=== PATIENT | female | born 1970 | race Caucasian/White ===

== ENCOUNTER → 2016-06-16 | Outpatient (CLI) | payer BC ==
--- NOTE | 2016-06-17 08:40 | WWHP ---
DATE OF SERVICE: 06/16/2016 CHIEF COMPLAINT: The patient is here for her routine gynecologic exam and mammogram. HPI: This is a 45-year-old, G2, P1-0-1-1 with an LMP of 05/2014. The patient continues to use progestin only oral contraception. She denies any hot flashes. Her last period was about 2 years ago. PAST MEDICAL HISTORY: Unremarkable. MEDICATIONS: Tameka 0.35 mg daily. ALLERGIES: No known drug allergies. PAST SURGICAL HISTORY: section in 1998. 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 SOCIAL HISTORY: She smokes about 1/2 pack of cigarettes per day and has 0 to 2 alcoholic drinks per month. She denies drug use. 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 FAMILY HISTORY: Unchanged from the 2016 H&P. REVIEW OF SYSTEMS: Weight has been stable. She denies respiratory, cardiac, or GI problems. PHYSICAL EXAM: Blood pressure 106/71. Height 5 feet 4 inches. Weight 124 pounds. Temperature 98.2, pulse 80. This a well-developed, well-nourished white female who is alert and oriented x3, in no acute distress. HEENT is within normal limits. NECK: Supple without mass or thyromegaly. CHEST AND LUNGS: Clear to auscultation. HEART: Regular rate and rhythm. Breasts are without mass or discharge. Axillary exam is negative for adenopathy. BACK: Negative for CVA tenderness. ABDOMEN: Soft, nontender, without palpable masses. PELVIC EXAM: Normal external genitalia. Cervix and vagina appear normal. There is no evidence of prolapse. The uterus is slightly retroverted, nongravid size and nontender. There are no palpable adnexal masses or tenderness. Rectovaginal exam is negative for mass or tenderness and is negative for occult blood. EXTREMITIES: Nontender. IMPRESSION: 1. A 45-year-old gynecologically healthy female with normal gynecologic exam. 2. The patient is doing well on progestin only oral contraception. PLAN: 1. Pap smear was performed. 2. Self breast examination was discussed. 3. Mammogram will be done today. 4. We will continue progestin only contraception at this time. We will consider doing blood testing to determine if she is menopausal in the next 1 to 2 years. 5. Osteoporosis prevention was discussed. 6. I have recommended that she try to quit smoking and many reasons to do this were given to the patient. 7. She will return in one year.
--- NOTE | 2016-06-18 10:12 | MM ---
Reason for exam: screening (asymptomatic). Last mammogram was performed 2 years and 1 month ago. History: Taking hormonal contraceptives for 6 months beginning at age 41. Physical Findings: A clinical breast exam by your physician is recommended on an annual basis and results should be correlated with mammographic findings. MG Screening Mammo w CAD Bilateral CC and MLO view(s) were taken. Prior study comparison: May 29, 2014, bilateral MG screening mammo w CAD. June 06, 2012, CAD bilateral diagnostic mammogram. The breast tissue is heterogeneously dense. This may lower the sensitivity of mammography. Two areas of focal asymmetry within the right breast appear more defined but may represent summation shadow. Further evaluation is recommended. ASSESSMENT: Incomplete: need additional imaging evaluation, BI-RAD 0 RECOMMENDATION: Special view mammogram of the right breast. If lesion persists on supplemental views, image directed ultrasound is recommended. [facility] will attempt to contact patient to return for supplemental views and ultrasound if indicated.
== END | disposition home or self-care (01) ==
LOC: WWCWWP 16:15
PROVIDERS: ATTEND Obstetrics & Gynecology
DX: Z12.31 Encounter for screening mammogram for malignant neoplasm of breast (principal); R92.8 Other abnormal and inconclusive findings on diagnostic imaging of breast; F17.200 Nicotine dependence, unspecified, uncomplicated; Z79.3 Long term (current) use of hormonal contraceptives

== ENCOUNTER → 2016-08-20 | Outpatient (CLI) | payer BC ==
--- NOTE | 2016-08-20 13:42 | MM ---
Reason for exam: additional evaluation requested from abnormal screening. Last mammogram was performed 2 months ago. History: Taking hormonal contraceptives for 6 months beginning at age 41. Physical Findings: Nurse did not find any significant physical abnormalities on exam. MG Work Up Mamm w CAD RT CC, MLO, LM, and CCRM view(s) were taken of the right breast. Prior study comparison: June 16, 2016, bilateral MG screening mammo w CAD. May 29, 2014, bilateral MG screening mammo w CAD. The breast tissue is heterogeneously dense. This may lower the sensitivity of mammography. No discrete abnormality. 6 month follow up recommended. These results were verbally communicated with the patient and result sheet given to the patient on 08/20/16. ASSESSMENT: Probably benign, BI-RAD 3 RECOMMENDATION: Follow-up diagnostic mammogram of the right breast in 6 months.
== END ==
LOC: RADMAMWWP 12:51
PROVIDERS: ATTEND Obstetrics & Gynecology
DX: R92.8 Other abnormal and inconclusive findings on diagnostic imaging of breast (principal)

== ENCOUNTER → 2017-06-22 | Outpatient (CLI) | payer BC ==
--- NOTE | 2017-06-22 16:13 | WWHP ---
[facility] - HISTORY AND PHYSICAL DATE OF DICTATION: 06/22/2017 CHIEF COMPLAINT: The patient is here for her routine gynecologic exam and mammogram. HISTORY OF PRESENT ILLNESS: This is a 46-year-old G2, P1-0-1-1 with an LMP of 05/2014. The patient has been amenorrheic on progestin-only oral contraception. She is without gynecologic complaints. PAST MEDICAL HISTORY: Unremarkable. MEDICATIONS: Tameka 0.35 mg 1 daily. ALLERGIES: NO KNOWN DRUG ALLERGIES. PAST SURGICAL HISTORY: section, 1998. 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 SOCIAL HISTORY: She has decreased the amount of tobacco use to 6 cigarettes per day or less. She is trying to quit. She has 2-3 alcohol-containing drinks per week and denies drug use. 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 FAMILY HISTORY: Unchanged from the 2016 H&P. REVIEW OF SYSTEMS: She has gained 6 pounds over the last year. She denies respiratory, cardiac or GI problems. PHYSICAL EXAMINATION: Blood pressure 101/69, height 5 feet 4 inches, weight 130 pounds, BMI 22. Temperature 98.5, pulse 69. This is a well-developed, well-nourished white female who is alert and oriented x3, in no acute distress. HEENT: Within normal limits. NECK: Supple without mass or thyromegaly. CHEST AND LUNGS: Clear to auscultation. HEART: Regular rate and rhythm. Breasts are without mass or discharge. Axillary exam is negative for adenopathy. BACK: Negative for CVA tenderness. ABDOMEN: Soft, nontender, without palpable masses. PELVIC EXAMINATION: Normal external genitalia. Cervix and vagina appear normal. There is no significant atrophy and no evidence of prolapse. The uterus is mid position, nongravid size and nontender. There are no palpable adnexal masses or tenderness. Rectal exam is negative for mass or tenderness and is negative for occult blood. EXTREMITIES: Nontender. ADDITIONAL STUDIES: Her last mammogram on 06/16/2016 required a right breast workup. The right breast workup was considered benign, but a follow-up diagnostic mammogram was recommended in 6 months, which was not done. IMPRESSION: 1. Yroum-wexl-[id number]-old female doing well on progestin-only oral contraception. 2. Amenorrhea, on progestin-only oral contraception. 3. Normal gynecologic exam. 4. History of abnormal right mammogram with a benign workup one year ago. PLAN: 1. Pap smear was deferred, since she had a normal one last year. 2. Self breast examination was discussed. 3. Diagnostic mammogram will be done today because of her history of an abnormal mammogram last year. 4. Osteoporosis prevention was discussed. 5. Continue progestin-only control at this time. 6. She will return in one year. MMODL / IJN: [id number] /
--- NOTE | 2017-06-23 07:29 | MM ---
Reason for exam: screening (asymptomatic). Last mammogram was performed 10 months ago. History: Taking hormonal contraceptives for 6 months beginning at age 41. Physical Findings: Dr. Rodriguez did not find any significant physical abnormalities on exam. MG Diagnostic Mammo w CAD GEMMA Bilateral CC and MLO view(s) were taken. Prior study comparison: August 20, 2016, right breast MG work up mamm w CAD RT. June 16, 2016, bilateral MG screening mammo w CAD. The breast tissue is heterogeneously dense. This may lower the sensitivity of mammography. Asymmetric breast tissue in the right upper quadrant, stable 2013. There is no discrete abnormality. These results were verbally communicated with the patient and result sheet given to the patient on 06/22/17. ASSESSMENT: Benign, BI-RAD 2 RECOMMENDATION: Routine screening mammogram of both breasts in 1 year.
== END | disposition home or self-care (01) ==
LOC: WWCWWP 13:49
PROVIDERS: ATTEND Obstetrics & Gynecology
DX: R92.8 Other abnormal and inconclusive findings on diagnostic imaging of breast (principal)
CPT/HCPCS: 77066

== ENCOUNTER → 2018-07-20 | Outpatient (CLI) | payer BC ==
[2018-07-20 09:38] VITALS: BP 111/77; PULSE 71; RESP 18; TEMP 96.7; BMI 23.3
--- NOTE | 2018-07-20 10:27 | P.HPOB ---
History of Present Illness H&P Date: 07/20/18 Chief Complaint: The patient is here for her routine gynecologic exam and ma mmogram. This is a 47-year-old with an LMP of 07/03/2018. The patient has done well with progestin only oral contraception and has been amenorrhea, while on it. She states her prescription ran out in the middle of June. About one week later she had a menstrual period. She restarted the control pills after calling for a new prescription. She is without gynecologic complaints. Review of Systems The patient has gained 6 pounds over the last year. She denies respiratory, cardiac, or G.I. problems. Past Medical History Additional Past Medical History / Comment(s): Small ASD in heart. 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 - Past Family History Father Family Medical History: Myocardial Infarction ([place]) Mother Family Medical History: Cancer, COPD Additional Family Medical History / Comment(s): Renal cancer. Medications and Allergies Home Medications Medication Instructions Recorded Confirmed Type Norethindrone [Ortho Micronor] 0.35 mg PO DAILY 07/20/18 07/20/18 History Allergies Allergy/AdvReac Type Severity Reaction Status Date / Time No Known Allergies Allergy Unverified 07/20/18 09:25 Exam Vital Signs Temp Pulse Resp BP Pulse Ox 07/20/18 09:32 96.7 F L 71 18 111/77 99 Intake and Output 07/19/18 07/20/18 07/20/18 22:59 06:59 14:59 Other: Weight 61.689 kg Height 5'4", weight 136 pounds, BMI 23.3. This is a well-developed well-nourished white female who is alert and oriented times 3 in no acute distress. HEENT: Within normal limits. NECK: Supple without mass or thyromegaly. CHEST AND LUNGS: Clear to auscultation. HEART: Regular rate and rhythm. BREASTS: Are without mass or discharge. AXILLARY EXAM: Negative for adenopathy. BACK: Negative for CVA tenderness. ABDOMEN: Soft, nontender, without palpable masses. PELVIC EXAM: Normal external genitalia. Cervix and vagina appear normal. The cervix appears nulliparous. There is no unusual discharge. There is no evidence of prolapse. The uterus is midposition, nongravid size and nontender. There are no palpable adnexal masses or tenderness. RECTAL EXAM: negative for mass or tenderness and is negative for occult blood. EXTREMITIES: Nontender. IMPRESSION: 1. 47-year-old female with normal gynecologic exam. 2. Doing well on progestin only contraception. 3. Amenorrheic on progestin only contraception. 4. Being that she had a withdrawal bleed after stopping the control pills last month, this suggests she is not menopausal and we will continue contraception. PLAN: 1. Pap smear was performed. 2. Self breast awareness was discussed with the patient. 3. Screening mammogram will be done today. 4. Osteoporosis prevention was discussed. I have stressed the importance of adequate calcium, vitamin D and regular exercise. Recommended amounts of calcium and vitamin D were also discussed. 5. She states she will be seeing somebody at [facility] for her small atrial septal defect to see if there should be some type of correction done. She was instructed to notify the cardiology Dr. that she is on the progestin only contraception to see if they suggest her stopping the medication. 6. We will plan on checking to see if she is menopausal at least yearly. This can be done by stopping the pills to see if she has a period, or checking and FSH after being off of the pill for one week. She will use a backup method if we do either of these. 7.She was advised to return in one year for her annual well woman exam.
--- NOTE | 2018-07-20 14:58 | MM ---
Reason for exam: screening (asymptomatic). Last mammogram was performed 1 year and 1 month ago. History: Taking hormonal contraceptives for 6 months beginning at age 41. Physical Findings: A clinical breast exam by your physician is recommended on an annual basis and results should be correlated with mammographic findings. MG Screening Mammo w CAD Bilateral CC and MLO view(s) were taken. Prior study comparison: June 22, 2017, bilateral MG diagnostic mammo w CAD [facility]EMMA. August 20, 2016, right breast MG work up mamm w CAD RT. The breast tissue is heterogeneously dense. This may lower the sensitivity of mammography. Asymmetric breast tissue in the right breast is stable. There is no discrete abnormality. ASSESSMENT: Negative, BI-RAD 1 RECOMMENDATION: Routine screening mammogram of both breasts in 1 year.
== END ==
LOC: WWCWWP 09:08
PROVIDERS: ATTEND Obstetrics & Gynecology
DX: Z12.31 Encounter for screening mammogram for malignant neoplasm of breast (principal)
CPT/HCPCS: 77067

== ENCOUNTER → 2020-02-06 | Outpatient (CLI) | payer BC ==
--- NOTE | 2019-07-25 13:18 | P.PN ---
Progress Note - Text Progress Note Date: 07/25/19 The patient was scheduled for an annual examination today but was not able to make it. She is requesting to have a prescription called in for her control pills. A prescription for Tameka progestin only pills was called into [facility] in [place]. She is to take 1 daily and an 8 week prescription was called in. She was instructed to make another appointment for her annual examination within the next 2 months.
--- NOTE | 2019-09-22 12:11 | WWPN ---
[facility] - PROGRESS NOTE The patient has called for a refill on her control pills. She is unable to schedule an annual examination due to the Covid-19 pandemic at this time. The prescription for DANILO 0.35 mg was sent to [facility] in [place]. She is to take 1 p.o. daily. They will dispense 84 pills with no refills. She will plan on making an annual examination when able. MMODL / IJN: [id number] /
[2020-02-06 15:33] VITALS: BP 103/68; PULSE 77; RESP 18; TEMP 98.5
--- NOTE | 2020-02-06 16:45 | P.HPOB ---
History of Present Illness H&P Date: 02/06/20 Chief Complaint: The patient is here for her routine gynecologic exam and ma mmogram. This is a 49-year-old 011 with an LMP of 09/12/2019. The patient has been on Tameka progestin only oral contraception for control. She has had a few menstrual periods with this and had 2 menstrual periods over the past year. Her last bleeding was after missing a few pills. She is without gynecologic complaints. Review of Systems The patient has gained 6 pounds over the last year. She denies respiratory, cardiac, or G.I. problems. Past Medical History Additional Past Medical History / Comment(s): Small ASD in heart surgically corrected. 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 History of Any Multi-Drug Resistant Organisms: None Reported Past Surgical History: Section Additional Past Surgical History / Comment(s): Small ASD in her heart surgically corrected. section 1998. 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 - Past Family History Father Family Medical History: Myocardial Infarction ([place]) Mother Family Medical History: Cancer, COPD Additional Family Medical History / Comment(s): Renal cancer. Medications and Allergies Home Medications Medication Instructions Recorded Confirmed Type Aspirin 81 mg PO DAILY 02/06/20 02/06/20 History Multivit with Calcium,Iron,Min 1 each PO DAILY 02/06/20 02/06/20 History [Women's Multivitamin] Norethindrone [Ortho Micronor] 0.35 mg PO DAILY #84 tablet 02/06/20 Rx Omeprazole [PriLOSEC] 40 mg PO DAILY 02/06/20 02/06/20 History Allergies Allergy/AdvReac Type Severity Reaction Status Date / Time No Known Allergies Allergy Unverified 02/06/20 15:26 Exam Vital Signs Temp Pulse Resp BP Pulse Ox 02/06/20 15:26 98.5 F 77 18 103/68 96 Intake and Output 02/06/20 02/06/20 02/06/20 06:59 14:59 22:59 Other: Weight 64.41 kg Height 5 feet 3 inches, weight 142 pounds, BMI 25.2. This is a well-developed well-nourished white female who is alert and oriented times 3 in no acute distress. HEENT: Within normal limits. NECK: Supple without mass or thyromegaly. CHEST AND LUNGS: Clear to auscultation. HEART: Regular rate and rhythm. BREASTS: Are without mass or discharge. AXILLARY EXAM: Negative for adenopathy. BACK: Negative for CVA tenderness. ABDOMEN: Soft, nontender, without palpable masses. PELVIC EXAM: Normal external genitalia. Cervix and vagina appear normal. The cervix appears nulliparous. There is no unusual discharge. There is no evidence of prolapse. The uterus is midposition, nongravid size and nontender. There are no palpable adnexal masses or tenderness. RECTAL EXAM: Rectovaginal exam is negative for mass or tenderness and is negative for occult blood. EXTREMITIES: Nontender. IMPRESSION: 1. 49-year-old female doing well on progestin only oral contraception. She is on progestin only pills because she still infrequently smokes. 2. Oligomenorrhea on progestin only oral contraception. Because she did have a withdrawal bleed after missing pills, she is not post menopausal so we will continue with this type of oral contraception. 3. Normal gynecologic exam. 4. History of low-grade SERA Pap smear with positive high risk HPV last year. Colposcopic examination in October 2018 was negative with low-grade SERA ECC. PLAN: 1. Pap smear was performed. We will also test for high-risk HPV. 2. Self breast awareness was discussed with the patient. 3. Screening mammogram will be done today. 4. She was advised to return in one year for her annual well woman exam. 5. The electronic prescription for her oral contraception will be sent to [facility] in [place].
--- NOTE | 2020-02-07 11:12 | MM ---
Reason for exam: screening (asymptomatic). Last mammogram was performed 1 year and 7 months ago. History: Taking hormonal contraceptives for 8 years 6 months beginning at age 41. Physical Findings: A clinical breast exam by your physician is recommended on an annual basis and results should be correlated with mammographic findings. MG Screening Mammo w CAD Bilateral CC and MLO view(s) were taken. Prior study comparison: July 20, 2018, bilateral MG screening mammo w CAD. June 22, 2017, bilateral MG diagnostic mammo w CAD GEM[facility]. There are scattered fibroglandular densities. There is no discrete abnormality. ASSESSMENT: Negative, BI-RAD 1 RECOMMENDATION: Routine screening mammogram of both breasts in 1 year.
== END | disposition home or self-care (01) ==
LOC: WWCWWP 15:16
PROVIDERS: ATTEND Obstetrics & Gynecology
DX: Z12.31 Encounter for screening mammogram for malignant neoplasm of breast (principal)
CPT/HCPCS: 77067

== ENCOUNTER → 2021-03-05 | Outpatient (CLI) | payer BC ==
[2021-03-05 11:36] VITALS: BP 107/69; PULSE 70; RESP 18; TEMP 98.4
--- NOTE | 2021-03-05 13:44 | P.HPOB ---
History of Present Illness H&P Date: 03/05/21 Chief Complaint: The patient is here for her routine gynecologic exam and ma mmogram. This is a 50-year-old 011 with an LMP of September 2019. The patient has had rare menstrual periods while on progestin only oral contraception. She is on this for control. During the past several months she has noticed daily hot flashes and has felt "cranky". She states she missed several pills because of not having them when traveling and she decided to discontinue them because of this 2 weeks ago. She still has not had any vaginal bleeding. Review of Systems The patient has gained 15 pounds over the last year. She denies respiratory, cardiac, or G.I. problems. Past Medical History Additional Past Medical History / Comment(s): Small ASD in heart surgically corrected. 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 History of Any Multi-Drug Resistant Organisms: None Reported Past Surgical History: Section Additional Past Surgical History / Comment(s): Small ASD in her heart surgically corrected. section 1998. Past Psychological History: No Psychological Hx Reported Smoking Status: Former smoker Past Alcohol Use History: Occasional (Up to 9 or 10 per week, but she is trying to cut back.) Additional Past Alcohol Use History / Comment(s): She states she quit smoking in 2019. Past Drug Use History: Marijuana - Past Family History Father Family Medical History: Myocardial Infarction ([place]) Mother Family Medical History: Cancer, COPD Additional Family Medical History / Comment(s): Renal cancer. Medications and Allergies Home Medications Medication Instructions Recorded Confirmed Type Aspirin 81 mg PO DAILY 02/06/20 03/05/21 History Multivit with Calcium,Iron,Min 1 each PO DAILY 02/06/20 03/05/21 History [Women's Multivitamin] Omeprazole [PriLOSEC] 40 mg PO DAILY 02/06/20 03/05/21 History Escitalopram [Lexapro] 20 mg PO DAILY 03/05/21 03/05/21 History Sertraline [Zoloft] 50 mg PO DAILY 03/05/21 03/05/21 History Allergies Allergy/AdvReac Type Severity Reaction Status Date / Time No Known Allergies Allergy Unverified 03/05/21 11:28 Exam Vital Signs Temp Pulse Resp BP Pulse Ox 03/05/21 11:30 98.4 F 70 18 107/69 97 Intake and Output 03/04/21 03/05/21 03/05/21 22:59 06:59 14:59 Other: Weight 71.214 kg Height 5 feet 3 inches, weight 157 pounds, BMI 27.8. This is a well-developed well-nourished white female who is alert and oriented times 3 in no acute distress. HEENT: Within normal limits. NECK: Supple without mass or thyromegaly. CHEST AND LUNGS: Clear to auscultation. HEART: Regular rate and rhythm. BREASTS: Are without mass or discharge. AXILLARY EXAM: Negative for adenopathy. BACK: Negative for CVA tenderness. ABDOMEN: Soft, nontender, without palpable masses. PELVIC EXAM: Normal external genitalia. Cervix and vagina appear normal. There is no unusual discharge. There is no evidence of prolapse. The uterus is midposition, nongravid size and nontender. There are no palpable adnexal masses or tenderness. RECTAL EXAM: negative for mass or tenderness and is negative for occult blood. EXTREMITIES: Nontender. IMPRESSION: 1. 50-year-old perimenopausal female with amenorrhea on progestin only oral contraception. 2. Regular vasomotor symptoms during the past several months. 3. Previous low-grade SERA Pap smear with positive high risk HPV testing that was negative for types 16 and 18. She also had other Pap smears and colposcopic ECC with low-grade changes since 2019. PLAN: 1. Pap smear cotest was performed. We will use the ASCCP algorithm to determine if additional workup is necessary. 2. Self breast awareness was discussed with the patient. We have also discussed symptoms associated with inflammatory breast cancer. 3. Mammogram was performed today. 4. We will continue to have a trial off of progestin only oral contraception. At this time it seems that she is possibly menopausal since she has been amenorrheic and is experiencing vasomotor symptoms. I recommended that she use condoms for control at this time. In 2 months, if she still has not had a menstrual period, she will have an FSH drawn. The order slip was given to the patient for this. She was instructed to call if she does have spontaneous menstrual periods off of the progestin only oral contraception. 5. The patient states she had an episode of blood per rectum and had discussed this with her PCP. She is scheduled for a colonoscopy by . 6. She was advised to return in one year for her annual well woman exam.
--- NOTE | 2021-03-06 12:41 | MM ---
Reason for exam: clinical finding. Last mammogram was performed 1 year and 1 month ago. History: Taking hormonal contraceptives for 8 years 6 months beginning at age 41. Indicated problem(s): pain in both breasts. Physical Findings: Breast exam performed by Dr. Rodriguez. MG Diagnostic Mammo w CAD GEMMA Bilateral CC and MLO view(s) were taken. Prior study comparison: February 06, 2020, bilateral MG screening mammo w CAD. July 20, 2018, bilateral MG screening mammo w CAD. June 22, 2017, bilateral MG diagnostic mammo w CAD [facility]. There are scattered fibroglandular densities. There is chronic nodularity in the right breast. No significant new findings when compared with previous films. These results were verbally communicated with the patient and result sheet given to the patient on 03/05/21. ASSESSMENT: Benign, BI-RAD 2 RECOMMENDATION: Routine screening mammogram of both breasts in 1 year.
--- NOTE | 2021-03-18 17:54 | P.PN ---
Progress Note - Text Progress Note Date: 03/18/21 OUTPATIENT FOLLOW-UP NOTE TEST(S)/RESULTS: Test results from 03/05/2021 include Pap smear showing low- grade SERA with positive high-risk HPV testing. The testing was negative for types 16 and 18. METHOD OF NOTIFICATION: The patient was notified by phone. 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 DISCUSSION: She had a prior colposcopic ECC which showed low-grade SERA in 2019. One year follow-up showed low-grade SERA in 2019 and again this year. PLAN: Colposcopy is recommended and she will be referred to Dr. Rogers who did her colposcopy in 2019.
== END | disposition home or self-care (01) ==
LOC: WWCWWP 11:06
PROVIDERS: ATTEND Obstetrics & Gynecology
DX: N64.4 Mastodynia (principal); N91.2 Amenorrhea, unspecified
CPT/HCPCS: 77066

== ENCOUNTER → 2022-10-02 | Outpatient (CLI) | payer BC ==
--- NOTE | 2022-10-03 05:26 | MR ---
EXAMINATION TYPE: MR lumbar spine wo con DATE OF EXAM: 10/02/2022 COMPARISON: Lumbar spine x-ray July 03, 2022 HISTORY: Low back pain into sandra legs. Spondylosis. TECHNIQUE: Multiplanar, multisequence imaging of the lumbar spine is performed without IV contrast. FINDINGS: Sagittal images of the lumbar spine show vertebral body heights and alignment to appear sat isfactory. There is some disc desiccation L2-L3 and L4-L5 levels. There is mild disc space narrowing at L4-L5 level. The conus medullaris is normal in position and signal ending inferior L1 level. The bone marrow signal intensity is within normal limits. Axial images show T12-L1 and L1-L2 levels to appear within normal limits. Axial images at L2-L3 level shows mild broad-based disc bulge minimally effacing the anterior thecal sac. Patent bilateral neural foramina. Axial images at L3-L4 level appear within normal limits. Axial images at L4-L5 level show mild/moderate broad-based posterior disc protrusion along with mild to moderate facet arthropathy and ligamentum flavum hypertrophy. There is mild effacement of the ante rior and the posterior lateral thecal sac. There is mild to moderate left greater than right bilatera l neural foraminal narrowing. Axial images at L5-S1 level shows mild to moderate right greater than left facet arthropathy. Spinal canal is preserved. Bilateral neural foramina are patent. Paraspinal muscle bulk is maintained. IMPRESSION: Some multilevel degenerative changes as detailed above worse at L4-L5 level.
== END | disposition home or self-care (01) ==
LOC: RADMRIMAIN 13:02
PROVIDERS: ATTEND Nurse Practitioner Family
DX: M47.26 Other spondylosis with radiculopathy, lumbar region (principal)
CPT/HCPCS: 72148

== ENCOUNTER → 2022-12-10 | Outpatient (CLI) | payer BC ==
--- NOTE | 2022-12-11 20:31 | MM ---
Reason for Exam: Screening (asymptomatic). Last mammogram was performed 1 year(s) and 10 month(s) ago. Patient History: Menarche at age 16. First Full-Term at age 27. Currently using Hormonal Contraceptives, beginning at age 41 for 8 years, 6 months. Risk Values: Kerry 5 year model risk: 1.0%. NCI Lifetime model risk: 8.9%. Prior Study Comparison: 07/20/2018 Bilateral Screening Mammogram, [facility]. 02/06/2020 Bilateral Screening Mammogram, [facility]. 03/05/2021 Bilateral Diagnostic Mammogram, [facility]. Tissue Density: There are scattered fibroglandular densities. Findings: Analyzed By CAD. There is no suspicious group of microcalcifications or new suspicious mass in either breast. Overall Assessment: Negative, BI-RAD 1 Management: Screening Mammogram of both breasts in 1 year. . Patient should continue monthly self-breast exams. A clinical breast exam by your physician is recommended on an annual basis. This exam should not preclude additional follow-up of suspicious palpable abnormalities. Note on Kerry scores and lifetime risk: 1. A Kerry score greater than 3% is considered moderate risk. If this is the case, consider specialist referral to assess eligibility for a risk reducing agent. 2. If overall lifetime risk for the development of breast cancer is 20% or higher, the patient may qualify for future screening with alternating mammogram and breast MRI. Electronically signed and approved by: Chetan Jackson M.D. Radiologist
== END | disposition home or self-care (01) ==
LOC: RADMAMWWP 11:03
PROVIDERS: ATTEND Internal Medicine
DX: Z12.31 Encounter for screening mammogram for malignant neoplasm of breast (principal)
CPT/HCPCS: 77067

== ENCOUNTER → 2023-12-20 | Outpatient (CLI) | payer BC ==
--- NOTE | 2024-01-12 10:58 | MM ---
Reason for Exam: Screening (asymptomatic). Last screening mammogram was performed 12 month(s) ago. Patient History: Menarche at age 16. First Full-Term at age 27. Currently using Hormonal Contraceptives, beginning at age 41 for 8 years, 6 months. Risk Values: Kerry 5 year model risk: 1.1%. NCI Lifetime model risk: 8.8%. Prior Study Comparison: 02/06/2020 Bilateral Screening Mammogram, [facility]. 03/05/2021 Bilateral Diagnostic Mammogram, [facility]. 12/10/2022 Bilateral MG screening mammo w CAD, [facility]. Tissue Density: There are scattered areas of fibroglandular density. Findings: Analyzed By CAD. There is no suspicious group of microcalcifications or new suspicious mass in either breast. Stable chronic nodularity calcifications. Overall Assessment: Benign, BI-RAD 2 Management: Screening Mammogram of both breasts in 1 year. . Patient should continue monthly self-breast exams. A clinical breast exam by your physician is recommended on an annual basis. This exam should not preclude additional follow-up of suspicious palpable abnormalities. Note on Kerry scores and lifetime risk: 1. A Kerry score greater than 3% is considered moderate risk. If this is the case, consider specialist referral to assess eligibility for a risk reducing agent. 2. If overall lifetime risk for the development of breast cancer is 20% or higher, the patient may qualify for future screening with alternating mammogram and breast MRI. Electronically signed and approved by: Ollie Llanes M.D. Radiologis
== END | disposition home or self-care (01) ==
LOC: RADMAMWWP 12:00
PROVIDERS: ATTEND Internal Medicine
DX: Z12.31 Encounter for screening mammogram for malignant neoplasm of breast
CPT/HCPCS: 77063; 77067

== ENCOUNTER → 2024-07-03 | Outpatient (CLI) | payer BC ==
--- NOTE | 2024-07-04 08:20 | XR ---
EXAMINATION TYPE: XR chest 2V DATE OF EXAM: 07/03/2024 4:49 PM COMPARISON: None. CLINICAL INDICATION: Female, 53 years old with history of R0782 INTERCOSTAL PAIN, TECHNIQUE: XR chest 2V view(s) obtained. FINDINGS: The heart size is normal. The pulmonary vasculature is normal. The lungs are clear. No pneumothorax is evident. Prior cardiac surgery is evident IMPRESSION: 1. No acute pulmonary process. [facility], , 07/04/2024 8:18 AM
--- NOTE | 2024-07-04 08:42 | XR ---
EXAMINATION TYPE: XR ribs bilateral DATE OF EXAM: 07/03/2024 4:49 PM COMPARISON: None. CLINICAL INDICATION: Female, 53 years old with history of R0782 INTERCOSTAL PAIN, pain, coughing TECHNIQUE: 2 view(s) obtained bilateral ribs. FINDINGS: No displaced rib fractures evident. No healing fractures are identified. No pneumothorax is evident. IMPRESSION: 1. Unremarkable bilateral ribs [facility], , 07/04/2024 8:40 AM
== END | disposition home or self-care (01) ==
LOC: RADXRYALE 16:31
PROVIDERS: ATTEND Internal Medicine
DX: R07.82 Intercostal pain (principal)
CPT/HCPCS: 71046; 71110

== ENCOUNTER → 2024-07-31 | Outpatient (CLI) | payer BC ==
--- NOTE | 2024-07-31 16:52 | XR ---
EXAMINATION TYPE: XR cervical spine comp DATE OF EXAM: 07/31/2024 4:29 PM COMPARISON: None CLINICAL INDICATION: Female, 53 years old with history of [id number] CERVICALGIA; YCH, pain TECHNIQUE: The cervical spine was imaged in frontal, lateral, odontoid and bilateral oblique. FINDINGS: The osseous structures show normal alignment without evidence of an acute fracture. There are osteoph ytes noted throughout the cervical spine on the anterior aspects of the vertebral bodies. The interve rtebral disk spaces are narrowed at multiple levels. Pedicles are intact. Soft tissues are within no rmal limits. The odontoid appears intact. IMPRESSION: 1. No fracture or dislocation. 2. Mild degenerative disc disease changes of the cervical spine. [facility], , 07/31/2024 4:49 PM
== END | disposition home or self-care (01) ==
LOC: RADXRYALE 16:13
PROVIDERS: ATTEND Internal Medicine
DX: M50.30 Other cervical disc degeneration, unspecified cervical region (principal)
CPT/HCPCS: 72050